=== PATIENT | female | born 1945 | race Caucasian/White ===

== ENCOUNTER → 2022-02-12 15:03 | Outpatient (BNVA) | payer MEDICARE, SELFPAY | PROVIDERS: Visit Provider Family Medicine Adult Medicine | DX: I10 Essential (primary) hypertension (principal); E78.5 Hyperlipidemia, unspecified; Z13.6 Encounter for screening for cardiovascular disorders; Z00.00 Encounter for general adult medical examination without abnormal findings | CPT/HCPCS: 80053; 84443; 85025 ==

== ENCOUNTER 2022-03-27 11:28 | Outpatient (CLI) | payer MEDICARE, SELFPAY ==
--- NOTE | 2022-03-27 11:34 | MM_ITS ---
WS: [id number] BILATERAL SCREENING DIGITAL TOMOSYNTHESIS MAMMOGRAM WITH CAD HISTORY: screening COMPARISON: 12/12/2018 and 10/01/2017 Bilateral CC and MLO views with tomosynthesis and synthetic mammography submitted. Computer aided det ection analyzed. Breast composition: There are scattered areas of fibroglandular density. No suspicious masses, microc alcifications or architectural distortion. Long-term stability lobulated 8 mm nodule in the anterior LEFT breast. MM/[place] [id number] IMPRESSION: BI-RADS: 2-Benign FOLLOW UP: 1 Year Follow-up
== END 2022-03-27 11:29 | disposition home or self-care (01) ==
PROVIDERS: PCP Family Medicine Adult Medicine; Visit Provider Family Medicine Adult Medicine
DX: Z12.31 Encounter for screening mammogram for malignant neoplasm of breast (principal)
CPT/HCPCS: 77063; 77067

== ENCOUNTER → 2022-04-29 07:12 | Outpatient (BNVA) | payer MEDICARE, SELFPAY | PROVIDERS: PCP Family Medicine Adult Medicine; Visit Provider Family Medicine Adult Medicine | DX: I10 Essential (primary) hypertension (principal); E78.5 Hyperlipidemia, unspecified; F10.21 Alcohol dependence, in remission; M46.1 Sacroiliitis, not elsewhere classified; Z00.00 Encounter for general adult medical examination without abnormal findings | CPT/HCPCS: 80053; 80061; 85025 ==

== ENCOUNTER → 2022-10-28 08:37 | Outpatient (BNVA) | payer MEDICARE, SELFPAY | PROVIDERS: PCP Family Medicine Adult Medicine; Visit Provider Family Medicine Adult Medicine | DX: N18.30 Chronic kidney disease, stage 3 unspecified (principal); E87.6 Hypokalemia | CPT/HCPCS: 80053 ==

== ENCOUNTER 2022-11-03 08:18 | Outpatient (CLI) | payer MEDICARE, SELFPAY ==
--- NOTE | 2022-11-03 08:39 | XR_ITS ---
WS: [id number] EXAMINATION: XR chest 2V* [id number] REASON FOR EXAM: chronic cough ORDER DATE: 11/03/2022 8:40 AM FINDINGS: There are perihilar and parenchymal granulomatous calcifications. Cardiomegaly is demonstrated. Ther e is an atherosclerotic aorta containing calcified plaque. There are no pleural effusions. XR/XR chest 2V* [id number] IMPRESSION: CARDIOMEGALY WITH NO ACUTE PULMONARY CHANGE.
== END 2022-11-03 08:19 | disposition home or self-care (01) ==
LOC: RAD 08:22
PROVIDERS: PCP Family Medicine Adult Medicine; Visit Provider Family Medicine Adult Medicine
DX: R05.3 Chronic cough (principal); I10 Essential (primary) hypertension; N18.30 Chronic kidney disease, stage 3 unspecified; I51.7 Cardiomegaly
CPT/HCPCS: 71046

== ENCOUNTER 2022-12-21 16:09 | Emergency (ER) | payer MEDICARE, SELFPAY ==
[2022-12-21 16:20] VITALS: BP 128/83; PULSE 126; RESP 16; TEMP 36.7; O2SAT 96; BMI 26.1
--- NOTE | 2022-12-21 17:12 | ED_ITS ---
HPI - Allergic Reaction General: Chief complaint: Allergic Reaction Stated complaint: allergic reaction Time Seen by Provider: 12/21/22 17:12 History of Present Illness: HPI narrative: 77-year-old female comes in today with rash to the face upper neck arms and legs. Patient was concerned due to significant swelling under the eyes. Patient reports increased swelling upon awakening today which is seem to improve a little bit after being up and around. Patient had worked outside on Wednesday and Wednesday cleaning up her yard. Patient has had a history of poison yane outbreak once before. Patient appears nontoxic. Patient appears in no pain. Patient has a history of hypertension, muscle spasms, high cholesterol, IBS with constipation variety, depression. Associated symptoms: Deny nausea or vomiting Review of Systems General: Reports: 10 or more systems reviewed and unremarkable except in HPI and below ENMT: Denies: throat pain Card: Denies: chest pain Resp: Denies: dyspnea GI: Denies: nausea or vomiting : Denies: flank pain Musc: Denies: neck pain Skin/Breast: Reports: rash and erythema Neuro: Denies: headache(s) PFSH ED PFSH: Medical History (Updated 12/21/22 @ 17:17 by DUC Starkey) Alcohol use disorder, severe, in sustained remission, dependence Chronic GERD Chronic idiopathic constipation CKD (chronic kidney disease) stage 3, GFR 30-59 ml/min Dyslipidemia Hypertension Hypokalemia Methamphetamine use disorder, severe, in sustained remission, dependence age 22 to 46, remission 30 years Neck and shoulder pain Nocturnal cough Post-traumatic stress disorder, chronic Psychiatric care Sacroiliac inflammation 04/29/2022 and 10/28/2022 Rt > left Social History Smoking and tobacco status: never smoked Second hand smoke exposure: Yes Smoking risk assessment/counseling performed?: No Alcohol intake: current Alcohol intake frequency: holidays/special occasions only Alcohol type: beer Desire information about alcohol rehabilitation?: No Counseling given: No Substance/Drug Use: never Desire information about substance/drug rehabilitation?: No Counseling given: No Lives independently: Yes Household members: family Current occupational status: retired and disabled Physical Exam Const: COMMON NORMALS: alert HENMT: FACE & SINUS: other (Erythematous rough rash with facial swelling) NOSE: Normal nares present MOUTH: Normal oral and palatal mucosa present Neck/C-Spine: COMMON NORMALS: full ROM Resp: COMMON NORMALS: normal respiratory effort and clear to auscultation bilaterally AUSCULTATION: clear to auscultation bilaterally Cardio: COMMON NORMALS: regular rate and regular rhythm RATE: regular rate RHYTHM: regular rhythm GI: COMMON NORMALS: non-tender : COMMON NORMALS: Yes no CVA tenderness BLADDER/KIDNEY EXAM: Yes no CVA tenderness Back/Pelvis: COMMON NORMALS: no CVA tenderness Extremity: COMMON NORMALS: full ROM Neuro: SENSORIUM/ORIENTATION: Yes alert Skin: COMMON NORMALS: turgor normal GENERAL SKIN EXAM: turgor normal Course Vital Signs: Vital signs: Vital Signs Temperature 98.0 F 12/21/22 16:20 Pulse Rate 100 12/21/22 17:31 Respiratory Rate 16 12/21/22 17:31 Blood Pressure 128/83 12/21/22 16:20 Pulse Oximetry 99 12/21/22 17:31 Oxygen Delivery Me thod Room Air 12/21/22 16:20 MDM - Allergic Reaction Medical Decision Making 77-year-old female comes in today with rash to the face neck forearms and lower legs. On exam patient has a extensive rash to the face that is rough in texture of swelling surrounding it. Patient also has patches of a similar rash to the forearms and lower legs. Differential diagnosis includes but not limited to angioedema, anaphylaxis, contact dermatitis, allergic reaction. The exam endorses contact dermatitis with a plant along with patient's history. Swelling is secondary to the extensive rash to mainly the face. Discussed with patient recommended treatment with steroid to help with the swelling around the eyes and face. Discussed other treatment with calamine and antihistamine. Discussed the use of Claritin and/or Zyrtec to help with the itching and rash since patient does not tolerate Benadryl. Patient reported understanding and agreed to plan. Discharge Plan Discharge Patient Disposition: Home Clinical Impression: Contact dermatitis Qualifiers: Contact dermatitis type: allergic Contact dermatitis trigger: non-food plants Qualified Code(s): L23.7 - Allergic contact dermatitis due to plants, except food Condition: Stable Prescriptions: New prednisone 20 mg tablet 20 mg PO BID 7 Days Qty: 14 0RF No Action potassium chloride 20 mEq tablet extended release 20 meq PO DAILY Qty: 30 11RF baclofen 10 mg tablet 10 mg PO TID PRN (Reason: muscle pain) Qty: 30 2RF Linzess 145 mcg capsule 145 mcg PO QAM Qty: 30 5RF famotidine [Pepcid AC] 20 mg tablet 20 mg PO DAILY duloxetine [Cymbalta] 30 mg capsule,delayed release(DR/EC) 30 mg PO DAILY Qty: 30 2RF sertraline [Zoloft] 50 mg tablet 50 mg PO DAILY Qty: 30 0RF trazodone 100 mg tablet 300 mg PO .HS PRN (Reason: insomnia) Qty: 90 2RF amlodipine 5 mg tablet 5 mg PO DAILY Qty: 30 5RF atorvastatin 10 mg tablet 10 mg PO DAILY Qty: 30 5RF Discharge Orders: Discharge ED (Routine); Ordered 12/21/22 Ordered By: Yuri Sagastume Referrals: Malcolm Hubbard MD [Primary Care Provider] - Discharge Diet: Usual diet Discharge Activity: Increase activity as tolerated Patient Instructions: Poison Yane (ED), Cold Compress or Soak (ED) Activity Restrictions/Additional Instructions: Use loratadine, Claritin, 1 tablet twice a day to help with itching and rash. Drink plenty of water with medication. Take prednisone 20 mg 1 tablet twice a day for the next 7 days. The rash will have to run its course and takes about 14 days to clear. The prednisone will help with the swelling in the face. Elevate the head of your bed at night to help with swelling of the face and eyes . Follow-up with primary care in 2 to 3 days for recheck. Return to ED for new concerns or worsening symptoms such as shortness of breath, chest pain, or high fever. Coding Level of Care Code ED Food Service Lead for Ravi Sharma
[2022-12-21] MEDS: cetirizine 10 mg Tablet PO (17:20)
[2022-12-21] MEDS: dexamethasone 10 mg/mL INJ IM (17:20)
[2022-12-21 17:31] VITALS: PULSE 100; RESP 16; O2SAT 99
== END 2022-12-21 17:32 | disposition home or self-care (01) ==
PROVIDERS: Emergency Provider Nurse Practitioner Family; PCP Family Medicine Adult Medicine
DX: L23.7 Allergic contact dermatitis due to plants, except food (principal); Z77.22 Contact with and (suspected) exposure to environmental tobacco smoke (acute) (chronic); I12.9 Hypertensive chronic kidney disease with stage 1 through stage 4 chronic kidney disease, or unspecified chronic kidney disease; N18.30 Chronic kidney disease, stage 3 unspecified; E78.5 Hyperlipidemia, unspecified
CPT/HCPCS: 96372; 99284; J1100

== ENCOUNTER 2023-01-17 10:59 | Observation (INO) | payer MEDICARE, SELFPAY ==
[2023-01-17] VITALS (9 sets, daily range): BP systolic 127–163; BP diastolic 64–79; PULSE 51–108; RESP 13–25; TEMP 36.3–36.4; O2SAT 94–98; BMI 27.6
--- NOTE | 2023-01-17 11:10 | ECG_ITS ---
[facility] Test Date: 2023-01-17 Pat Name: Lupe Mckinney Department: Room: Gender: Female Director Regulatory Affairs: : 1945 Requested By: Kwasi Denney Order Number: [id number] Kenia MD: Edil Hollis M.D. Measurements Intervals [place] Rate: 76 P: 61 AR: 161 QRS: 9 QRSD: 83 T: 46 QT: 342 QTc: 386 Interpretive Statements SINUS RHYTHM LOW QRS VOLTAGE IN PRECORDIAL LEADS [QRS DEFLECTION < 1.0 mV IN CHEST LEADS] No previous ECG available for comparison Electronically Signed On 01-17-2023 15:45:15 CDT by Edil Hollis M.D. [id number] f
--- NOTE | 2023-01-17 11:21 | ED_ITS ---
HPI - Chest Pain General: Chief Complaint: Chest Pain Stated Complaint: chest Pain and discomfort, Time Seen by Provider: 01/17/23 11:21 History of Present Illness: Ms. Mckinney is a 77-year-old lady with history of hypertension hyperlipidemia presented to the emergency department for chest pain. Notes onset of symptoms while walking to her car approximately 30 minutes prior to arrival. Substernal on the right with radiation to the jaw and associated shortness of breath. Moderate intensity symptoms. Course has persisted. Denies frequent similar episodes in the past. No other specific changes in health, exacerbating, or alleviating factors identified. Onset (ago): minute(s) Onset: during exertion Pain location: substernal and right chest Pain radiation: jaw/teeth Severity: moderate Quality: aching Relieving factors: nothing Exacerbating factors: nothing Review of Systems General: Reports: 10 or more systems reviewed and unremarkable except in HPI and below PFSH ED PFSH: Medical History (Updated 01/27/23 @ 10:35 by Malcolm Hubbard MD) Alcohol use disorder, severe, in sustained remission, dependence Chest pain Chronic GERD Chronic idiopathic constipation Decreased calculated GFR Dyslipidemia Hypertension Hypokalemia Methamphetamine use disorder, severe, in sustained remission, dependence age 22 to 46, remission 30 years Neck and shoulder pain Post-traumatic stress disorder, chronic Psychiatric care Sacroiliac inflammation 04/29/2022 and 10/28/2022 Rt > left Urticaria Social History Smoking and tobacco status: never smoked Second hand smoke exposure: Yes Smoking risk assessment/counseling performed?: No Alcohol intake: current Alcohol intake frequency: holidays/special occasions only Alcohol type: beer Desire information about alcohol rehabilitation?: No Counseling given: No Substance/Drug Use: never Desire information about substance/drug rehabilitation?: No Counseling given: No Lives independently: Yes Household members: family Current occupational status: retired and disabled Physical Exam Const: COMMON NORMALS: alert GENERAL APPEARANCE: cooperative and well developed HENMT: COMMON NORMALS: normocephalic and atraumatic HEAD & SCALP: normocephalic and atraumatic Eye: COMMON NORMALS: conjunctivae normal CONJUNCTIVA: Yes conjunctivae normal SCLERA: sclerae normal Neck/C-Spine: COMMON NORMALS: supple GENERAL: Yes trachea midline Resp: COMMON NORMALS: normal respiratory effort EFFORT & INSPECTION: Yes able to speak in complete sentences Cardio: COMMON NORMALS: regular rate and regular rhythm RATE: regular rate RHYTHM: regular rhythm GI: COMMON NORMALS: Soft to palpation PALPATION: Yes Soft to palpation and No Tenderness to palpation present (GI) PERCUSSION: normal to percussion Extremity: GENERAL: Yes normal exam except as noted and No edema Neuro: COMMON NORMALS: moves all extremities SENSORIUM/ORIENTATION: Yes alert and No Orientation impaired Psych: COMMON NORMALS: mental status grossly normal and Normal thought process present THOUGHT PROCESS: Normal thought process present Course Vital Signs: Vital signs: Vital Signs Temperature 98.6 F 01/18/23 11:08 Pulse Rate 72 01/18/23 11:08 Respiratory Rate 16 01/18/23 11:08 Blood Pressure 145/73 01/18/23 11:08 Pulse Oximetry 97 01/18/23 11:08 Oxygen Delivery Me thod Room Air 01/18/23 11:08 MDM - Chest Pain Medical Decision Making 77-year-old lady presenting with chest pain. Chest pain is not reproducible with palpation on exam. EKG demonstrates sinus rhythm with normal axis and intervals, nonspecific ST segment abnormalities, no STEMI. Labs with essentially unremarkable hematologic panel. Metabolic panel with normal electrolytes, minimal elevation in creatinine. Negative range 2-hour delta troponin. Chest x-ray with no lobar consolidation or pneumothorax. During ED course patient treated with aspirin and morphine. The patient is not low risk by heart score. I discussed risk stratification and estimation of major adverse cardiac event risks. We will proceed with in hospital cardiac testing. The results of ED evaluation were discussed with the patient including plan for admission due to requirement for level of care not available if discharged to prevent significant worsening/deterioration. Patient agreeable with plan. Discussed with hospitalist service who was agreeable to admit patient. Medical Records I reviewed the patient's medical records. Lab Data I reviewed the patient's lab results. 01/18/23 04:37 01/18/23 04:16 Radiology Impressions Chest X-Ray 01/17/23 11:22 IMPRESSION: No acute findings. Chest CTA 01/18/23 11:34 IMPRESSION: 1. No pulmonary embolism. 2. Dependent changes and subsegmental areas of atelectasis in the lingula and LEFT lower lobe. 3. Mild LEFT heart enlargement. 4. Small hiatal hernia. 5. Mild esophageal wall thickening. Laboratory Results WBC 5.9 10^3/uL (4.0-10.0) 01/17/23 11: RBC 4.02 10^6/uL (4.1-5.3) L 01/17/23 11:28 Hgb 11.5 g/dL (11.5-15.3) 01/17/23 11:28 Hct 36.1 % (37.0-47.0) L 01/17/23 11: MCV 89.8 fl (81-99) 01/17/23 11:28 MCH 28.6 pg (28.0-34.0) 01/17/23 11: MCHC 31.9 g/dL (30.0-36.0) 01/17/23 11: RDW 14.4 % (12.1-15.1) 01/17/23 11: Plt Count 265 10^3/cmm (130-400) 01/17/23 11: MPV 8.9 fL (7.4-10.4) 01/17/23 11:28 Neut % (Auto) 63.4 % 01/17/23 11:28 Lymph % (Auto) 25.6 % 01/17/23 11:28 Hubbard % (Auto) 5.8 % 01/17/23 11:28 Eos % (Auto) 4.1 % 01/17/23 11:28 Baso % (Auto) 0.8 % 01/17/23 11:28 Neut # (Auto) 3.73 10^3/uL (1.8-7.7) 01/17/23 11:28 Lymph # (Auto) 1.5 10^3/uL (0.8-4.8) 01/17/23 11:28 Hubbard # (Auto) 0.3 10^3/uL (0.2-0.9) 01/17/23 11:28 Eos # (Auto) 0.2 10^3/uL (0.0-0.8) 01/17/23 11:28 Baso # (Auto) 0.1 10^3/uL (0.0-0.1) 01/17/23 11:28 Nucleated RBC % (auto) 0 % 01/17/23 11:28 Nucleated RBCs # 0.0 /100WBC 01/17/23 11:28 Sodium 139 mmol/L (136-145) 01/17/23 11:28 Potassium 4.2 mmol/L (3.5-5.1) 01/17/23 11:28 Chloride 103 mmol/L (98-107) 01/17/23 11:28 Carbon Dioxide 23 mmol/L (22-29) 01/17/23 11:28 Anion Gap 17.2 (5-19) 01/17/23 11:28 BUN 17 mg/dL (8-23) 01/17/23 11:28 Creatinine 1.2 mg/dL (0.5-0.9) H 01/17/23 11:28 GFR Calculation Not Reportable 01/17/23 11:28 Glucose 118 mg/dL (65-115) H 01/17/23 11:28 Calculated Osmolality 291 mOsm/kg (285-295) 01/17/23 11:28 Calcium 9.5 mg/dL (8.5-10.5) 01/17/23 11:28 Total Bilirubin 1.0 mg/dL (0.15-1.2) 01/17/23 11:28 AST 25 U/L (0-32) 01/17/23 11:28 ALT 8 U/L (0-33) 01/17/23 11:28 Alkaline Phosphatase 70 U/L (35-105) 01/17/23 11:28 Troponin T Baseline 11 ng/L (0-10) H 01/17/23 11:28 Troponin T 120 Minute 11.06 ng/L (0-10) H 01/17/23 13:15 Delta Troponin T 0.06 ABS# (0-10) 01/17/23 13:15 NT-Pro-B Natriuret Pep 125 pg/mL (0-450) 01/17/23 11:28 Total Protein 7.0 g/dL (6.6-8.7) 01/17/23 11:28 Albumin 4.7 g/dL (3.5-5.2) 01/17/23 11:28 Globulin 2.3 g/dL (1.3-4.6) 01/17/23 11:28 Lipase 22 U/L (13-60) 01/17/23 11:28 Discharge Plan Discharge Patient Disposition: Placed in Observation Admit Provider: Ed Hilliard Clinical Impression: Chest pain Discharge Diet: Cardiac Discharge Activity: Increase activity as tolerated Coding Level of Care Code ED Jewelry Bench Molder for Ravi Sharma
--- NOTE | 2023-01-17 11:22 | XRR_ITS ---
PROCEDURE INFORMATION: Exam: XR Chest Exam date and time: 01/17/2023 11:34 AM Age: 77 years old Clinical indication: Pain; Chest pressure; Additional info: Cp TECHNIQUE: Imaging protocol: Radiologic exam of the chest. Views: 1 view. COMPARISON: CR XR chest 2V* [id number] 11/03/2022 8:41 AM FINDINGS: Lungs: Unremarkable. No consolidation. Pleural spaces: Unremarkable. No pleural effusion. No pneumothorax. Heart/Mediastinum: Unremarkable. No cardiomegaly. Bones/joints: Unremarkable. XR/XR chest 1V portable [id number] IMPRESSION: No acute findings.
[2023-01-17] MEDS: aspirin 81 mg Chew Tablet 324 MG PO (11:33)
[2023-01-17] MEDS: morphine 4 mg/mL SDV 1 mL IVP (11:34)
[2023-01-17 11:36] LABS: Basophils # 0.1 10^3/uL (0.0-0.1); Basophils % 0.8 %; Eosinophils # 0.2 10^3/uL (0.0-0.8); Eosinophils % 4.1 %; Hematocrit 36.1 % (37.0-47.0); Hemoglobin 11.5 g/dL (11.5-15.3); Lymphocytes # 1.5 10^3/uL (0.8-4.8); Lymphocytes % 25.6 %; Mean Corpuscular HGB Conc 31.9 g/dL (30.0-36.0); Mean Corpuscular Hemoglobin 28.6 pg (28.0-34.0); Mean Corpuscular Volume 89.8 fl (81-99); Mean Platelet Volume 8.9 fL (7.4-10.4); Monocytes # 0.3 10^3/uL (0.2-0.9); Monocytes % 5.8 %; Neutrophils # 3.73 10^3/uL (1.8-7.7); Neutrophils % 63.4 %; Nucleated Red Blood Cells % 0 %; Platelet Count 265 10^3/cmm (130-400); Red Blood Count 4.02 10^6/uL (4.1-5.3); Red Cell Distribution Width 14.4 % (12.1-15.1); White Blood Count 5.9 10^3/uL (4.0-10.0)
[2023-01-17 12:00] LABS: Troponin(5th) Baseline 11 ng/L (0-10)
[2023-01-17 12:05] LABS: Alanine Aminotransferase 8 U/L (0-33); Albumin Level 4.7 g/dL (3.5-5.2); Alkaline Phosphatase 70 U/L (35-105); Anion Gap 17.2 (5-19); Aspartate Amino Transferase 25 U/L (0-32); Blood Urea Nitrogen 17 mg/dL (8-23); Calcium 9.5 mg/dL (8.5-10.5); Carbon Dioxide 23 mmol/L (22-29); Chloride 103 mmol/L (98-107); Globulin 2.3 g/dL (1.3-4.6); Glucose 118 mg/dL (65-115); Lipase 22 U/L (13-60); NT Pro B Type Natriuretic Pept 125 pg/mL (0-450); Osmolality Calculated 291 mOsm/kg (285-295); Potassium 4.2 mmol/L (3.5-5.1); Sodium 139 mmol/L (136-145)
--- NOTE | 2023-01-17 13:30 | ECG_ITS ---
[facility] Test Date: 2023-01-17 Pat Name: Lupe Mckinney Department: Room: Gender: Female Digital Project Coordinator: : 1945 Requested By: Kwasi Denney Order Number: [id number] Kenia MD: Edil Hollis M.D. Measurements Intervals [place] Rate: 57 P: 28 TN: 174 QRS: 13 QRSD: 94 T: 36 QT: 402 QTc: 392 Interpretive Statements SINUS BRADYCARDIA LOW QRS VOLTAGE IN PRECORDIAL LEADS [QRS DEFLECTION < 1.0 mV IN CHEST LEADS] Compared to ECG 01/17/2023 11:10:31 Sinus rhythm no longer present Electronically Signed On 01-17-2023 15:47:08 CDT by Edil Hollis M.D. [id number]
[2023-01-17 13:42] LABS: Troponin 5 2HR 11.06 ng/L (0-10)
[2023-01-17 13:44] LABS: Troponin 5 2HR Delta 0.06 ABS# (0-10)
--- NOTE | 2023-01-17 15:23 | PM.HP ---
Providers/Chief Complaint Admitting Physician: Ed Hilliard MD Primary Care Provider: Malcolm Hubbard MD Chief Complaint: chest Pain and discomfort, History of Present Illness Lupe Mckinney is a 77 year old female with PMH of HTN DLD, CKD stage III, anxiety disorder, came in today with c/o right-sided substernal chest pain, sharp 6 out of 10 in severity nonradiating, associated with sob, lasted for quite some time, this happened when she was at the car wash, also had a similar episode of chest pain 1 week back, which spontaneously resolved at that time, she deny any fever, cough, palpitation, diaphoresis, nausea,vomiting,abdominal pain Pertinent labs and imaging studies includes: Xray chest : No acute findings ,EKG : SR with no acute ST-T Waves changes Pertinent Labs : WBC : 5.9 H&H: PLT : 265 Na : 139 K: 4.2 BUN/SCR : 17/1,2, Lipase: 22 Troponin Trend : 11-11 6 h pending Pro BNP: 125 Review of Systems General: Reports: 10 or more systems reviewed and unremarkable except in HPI and below Const: Denies: fever(s), chills, body aches, change in appetite or diaphoresis Card: Denies: palpitations, edema, swelling of feet/ankles, dyspnea on exertion, orthopnea or leg pain with exertion Resp: Denies: dyspnea, productive cough, wheezing or pain on inspiration GI: Denies: abdominal pain, nausea, vomiting, diarrhea or constipation : Denies: flank pain Musc: Denies: back pain, extremity pain or extremity swelling Neuro: Denies: headache(s), difficulty walking or confusion Medications/Allergies Home Medications Medication Instructions Recorded Confirmed Last Taken Type permethrin 5 % topical cream 1 applic topical Q14D 2 doses #60 01/05/23 01/17/23 01/05/23 Rx grams due to use 01/19/23 amlodipine 5 mg tablet 5 mg PO QAM blood pressure 01/17/23 01/17/23 01/17/23 08:30 History atorvastatin 10 mg tablet 10 mg PO QAM cholesterol 01/17/23 01/17/23 01/17/23 08:30 History duloxetine 60 mg capsule,delayed 60 mg PO QAM 01/17/23 01/17/23 01/17/23 08:30 History release (Cymbalta) potassium chloride 20 mEq 20 meq PO QAM Low potassium 01/17/23 01/17/23 01/17/23 08:30 History tablet,extended release trazodone 100 mg tablet 200 mg PO BEDTIME 01/17/23 01/17/23 01/16/23 History Allergies Allergy/AdvReac Type Severity Reaction Status Date / Time Sulfa (Sulfonamide Allergy Severe Anaphylaxis Verified 01/17/23 11:35 Antibiotics) diphenhydramine AdvReac Mild ADR-Nausea Verified 01/17/23 11:35 [From Benadryl] pineapple AdvReac Mild Unknown Verified 01/17/23 11:35 PFSH Acute PFSH: Medical History Alcohol use disorder, severe, in sustained remission, dependence Chronic GERD Chronic idiopathic constipation CKD (chronic kidney disease) stage 3, GFR 30-59 ml/min Dyslipidemia Hypertension Hypokalemia Methamphetamine use disorder, severe, in sustained remission, dependence age 22 to 46, remission 30 years Neck and shoulder pain Nocturnal cough Post-traumatic stress disorder, chronic Psychiatric care Sacroiliac inflammation 04/29/2022 and 10/28/2022 Rt > left Social History Smoking and tobacco status: never smoked Second hand smoke exposure: Yes Smoking risk assessment/counseling performed?: No Alcohol intake: current Alcohol intake frequency: holidays/special occasions only Alcohol type: beer Desire information about alcohol rehabilitation?: No Counseling given: No Substance/Drug Use: never Desire information about substance/drug rehabilitation?: No Counseling given: No Lives independently: Yes Household members: family Current occupational status: retired and disabled Vitals/I&O/Wt Last Vital Signs Pulse 54 L 01/17/23 14:22 Resp 17 01/17/23 14:22 BP 141/78 01/17/23 14:22 Pulse Ox 98 01/17/23 14:22 O2 Del Method Room Air 01/17/23 11:03 Weight last 48 hrs Weight 87.543 kg Physical Exam Const: COMMON NORMALS: patient oriented x3 HENMT: COMMON NORMALS: normocephalic and atraumatic HEAD & SCALP: normocephalic and atraumatic Resp: COMMON NORMALS: clear to auscultation bilaterally AUSCULTATION: clear to auscultation bilaterally Cardio: COMMON NORMALS: regular rate, regular rhythm, S1 normal heart sound present, S2 normal heart sound present, No gallops present (Cardio), No murmurs present (Cardio), No rub (Cardio) and Peripheral pulses 2+ throughout RATE: regular rate RHYTHM: regular rhythm HEART SOUNDS: S1 normal heart sound present and S2 normal heart sound present PERIPHERAL PULSES: Peripheral pulses 2+ throughout GI: COMMON NORMALS: Normal to inspection, nondistended, normoactive bowel sounds present, Soft to palpation, non-tender, No hepatosplenomegaly present and no masses AUSCULTATION: Yes normoactive bowel sounds PALPATION: Yes Soft to palpation and Yes No hepatosplenomegaly present RECTAL EXAM: deferred Extremity: COMMON NORMALS: no clubbing, cyanosis or edema and no pedal edema Neuro: COMMON NORMALS: patient oriented x3 Data 01/17/23 11:28 01/17/23 11:28 A&P Assessment and plan (1) Chest pain: (2) CKD (chronic kidney disease) stage 3, GFR 30-59 ml/min: (3) Dyslipidemia: (4) Hypertension: Plan 77 year old female with PMH of HTN DLD, CKD stage III, anxiety disorder, came in today with c/o right-sided sub sternal chest pain, sharp 6 out of 10 in severity non radiating, associated with sob, lasted for quite some time, this happened when she was at the car wash, also had a similar episode of chest pain 1 week back, which spontaneously resolved at that time, she deny any fever, cough, palpitation, diaphoresis, nausea,vomiting,abdominal pain. Assessment : Chest Pain : Follow 2D Echo Lipid Panel TSH Hba1c Continue aspirin, statin, s/l nitro as needed Nuclear Stress test in am HTN : Continue Amlodipine 5 mg po daily Goal B/P <130/70 Sinus Bradycardia : Continue telemetry monitoring for now Code Status :Full code DVT PPX: On lovenox Attestations Medical Necessity Statement*: Patient needs to be in hospital for the management of chest pain. Coding Level of Care Code Acute Code for [facility] Diagnoses Chest pain R07.9 CKD (chronic kidney disease) stage 3, GFR 30-59 ml/min N18.30 Dyslipidemia E78.5 Hypertension I10
--- NOTE | 2023-01-17 16:00 | USCV_ITS ---
Lupe Mckinney Age: 77 Gender: F : 1945 Exam Date: 01/17/2023 18:56 Ordering Phys: Ed Hilliard MD Technologist: AUBREY Exam Location: [facility] [place] Indication: cp BP: / HR: 52 Rhythm: Sinus Technical Quality: Adequate MEASUREMENTS (Male / Female) Normal Values 2D ECHO LV Diastolic Diameter PLAX 5.9 cm 4.2 - 5.9 / 3.9 - 5.3 cm LV Systolic Diameter PLAX 4.5 cm IVS Diastolic Thickness 0.6 cm 0.6 - 1.0 / 0.6 - 0.9 cm IVS Systolic Thickness 0.8 cm LVPW Diastolic Thickness 0.6 cm 0.6 - 1.0 / 0.6 - 0.9 cm LVPW Systolic Thickness 0.8 cm LVOT Diameter 2.0 cm LV Ejection Fraction 2D Teich 44.8 % LV Ejection Fraction MOD 2C 57.8 % LV Ejection Fraction 2C AL 57.9 % LA Diameter 3.4 cm IVC Diameter 1.5 cm M-MODE Aortic Annulus Diameter 2.6 cm LA Ao Ratio MM 1.5 MV E Point Septal Separation 0.5 cm DOPPLER AV Peak Velocity 140.0 cm/s LVOT Peak Velocity 98.0 cm/s AV Area Cont Eq vti 2.3 cm squared AV Area Cont Eq pk 2.3 cm squared MV Area PHT 4.1 cm squared Mitral E to A Ratio 1.1 MV E' Velocity 42.5 cm/s Mitral E to MV E' Ratio 9.1 Mitral E to LV E' Lateral Ratio 8.5 Mitral E to LV E' Septal Ratio 9.8 TR Peak Velocity 259.0 cm/s TR Peak Gradient 26.8 mmHg Right Atrial Pressure 6.0 mmHg Pulmonary Artery Systolic Pressu 32.8 mmHg PV Peak Velocity 84.0 cm/s FINDINGS Left Ventricle Left ventricle is normal in size. LV systolic function is normal with EF 55 to 60%. No regional wall motion abnormalities are seen. Right Ventricle Normal in size and function Right Atrium Normal in size Left Atrium Dilated Mitral Valve Structurally normal mitral valve. Mild mitral regurgitation Aortic Valve Aortic valve is thickened. No significant stenosis or regurgitation. Tricuspid Valve Mild tricuspid regurgitation. RVSP is 35-40mmHg, Mild pulmonary hypertension Pulmonic Valve Not well visualized Pericardium Normal Aorta Normal in size IVC Appears to be normal CONCLUSIONS LV systolic function is normal with EF of 55-60% Left atrial dilation Mild mitral regurgitation Mild tricuspid regurgitation Mild pulmonary hypertension No comparison studies are available. Edil Hollis MD (Electronically Signed) Final Date: 18 January 2023 09:23 S
[2023-01-17] MEDS: enoxaparin 40 mg/0.4 mL Syringe SUBCUT (17:29)
[2023-01-17 18:02] LABS: Troponin 5 6HR 10.93 ng/L (0-10)
[2023-01-17 18:19] LABS: Troponin 5 6HR Delta -0.07 ng/L (0-12)
[2023-01-17] MEDS: trazodone 100 mg Tablet 200 MG PO (21:01)
[2023-01-18] VITALS: BP 126/72; PULSE 91; RESP 18; TEMP 36.1; O2SAT 95
--- NOTE | 2023-01-18 | ECG_ITS ---
[facility] Test Date: 2023-01-18 Pat Name: Lupe Mckinney Department: Room: 275 Gender: Female Manager Corporate Responsibility: Roslyn Núñez : 1945 Requested By: Ed Hilliard Order Number: [id number] Kenia MD: Alba Donahue M.D. Interpretive Statements NAME OF STUDY: LEXISCAN SESTAMIBI STRESS TEST INDICATION: Chest Pain; Shortness of Breath PROCEDURE: At the baseline, the blood pressure was 137/52 mmHg with a heart rate of 69 bpm. The electrocardiogram showed sinus rhythm, normal axis with specific T wave changes. The Lexiscan was infused over a period of 20 seconds. A total of 0.4 milligrams of Lexiscan was infused. The stress phase was continued for a total of 5 minutes. Heart rate at the end of the stress phase was 80 bpm with a blood pressure 102/62 mmHg. The EKG at the peak infusion revealed no significant ST-T wave changes. Sestamibi was injected 20 seconds after the Lexiscan infusion. Blood pressure at the end of the recovery phase was 114/65 mmHg with a heart rate of 76 beats per minute. CONCLUSION: 1. No significant EKG changes with the LexiScan infusion. 2. No LexiScan induced chest pain or cardiac arrhythmia. 3. Normal blood pressure and heart rate response. 4. Sestamibi/sestamibi perfusion scan pending; see separate report. Electronically Signed On 01-18-2023 16:24:28 CDT by Alba Donahue M.D. [id number]
--- NOTE | 2023-01-18 02:44 | PC.NURSE ---
Patient's heart rate jumped up into the 140s Afib on telemetry. This nurse went to check on patient and patient was in the bathroom. Patient stated she was okay and was not having any pain. Patient's heart rate returned to Afib, normal rate once patient settled back into bed.
[2023-01-18 04:25] VITALS: BP 95/56; PULSE 79; RESP 16; TEMP 36.4; O2SAT 97
[2023-01-18 05:03] LABS: Basophils % 0.6 %; Eosinophils # 0.2 10^3/uL (0.0-0.8); Eosinophils % 3.6 %; Hematocrit 37.9 % (37.0-47.0); Lymphocytes # 1.6 10^3/uL (0.8-4.8); Lymphocytes % 24.4 %; Mean Corpuscular HGB Conc 31.7 g/dL (30.0-36.0); Mean Corpuscular Hemoglobin 29.2 pg (28.0-34.0); Mean Corpuscular Volume 92.2 fl (81-99); Mean Platelet Volume 8.8 fL (7.4-10.4); Monocytes # 0.4 10^3/uL (0.2-0.9); Monocytes % 6.8 %; Neutrophils # 4.14 10^3/uL (1.8-7.7); Neutrophils % 64.3 %; Nucleated Red Blood Cells % 0 %; Platelet Count 251 10^3/cmm (130-400); Red Blood Count 4.11 10^6/uL (4.1-5.3); Red Cell Distribution Width 14.3 % (12.1-15.1); White Blood Count 6.4 10^3/uL (4.0-10.0)
[2023-01-18 05:35] LABS: Anion Gap 14.5 (5-19); Blood Urea Nitrogen 19 mg/dL (8-23); Calcium 9.6 mg/dL (8.5-10.5); Carbon Dioxide 27 mmol/L (22-29); Chloride 104 mmol/L (98-107); Glucose 96 mg/dL (65-115); Osmolality Calculated 294 mOsm/kg (285-295); Potassium 4.5 mmol/L (3.5-5.1); Sodium 141 mmol/L (136-145); Thyroid Stimulating Hormone 4.78 uIU/mL (0.27-4.20)
[2023-01-18 05:38] VITALS: PULSE 70
[2023-01-18] MEDS: duloxetine 60 mg Capsule PO (05:43)
[2023-01-18] MEDS: atorvastatin 40 mg Tablet 20 MG PO (05:43)
[2023-01-18] MEDS: amlodipine 5 mg Tablet PO (05:45)
[2023-01-18 05:46] VITALS: BP 129/78
--- NOTE | 2023-01-18 06:15 | NMCV_ITS ---
NM william perf SPECT r/s* [id number] Lupe Mckinney Age: 77 Gender: F : 1945 Exam Date: 01/18/2023 06:15 Ordering Phys: Ed Hilliard MD Technologist: MAXIMILIAN Peterson Exam Location: [facility] Indications: CHEST PAIN STRESS TEST Please see separate stress test report in [facility] for full findings IMAGE PROTOCOL Rest/Stress 1 Lexiscan Day Radiopharmaceutical Dose (mCi) Administration Site Administered by Rest: Tc-99m 10.8 IV MAXIMILIAN Bobo Sestamibi Stress:Tc-99m 32.9 IV MAXIMILIAN Bobo Sestamibi Rest: 18-Jan-2023 60 Discovery 630 Stress: 18-Jan-2023 30 Discovery 630 0.4mg Lexiscan. Images obtained in supine and prone position. SPECT RESULTS Technical Quality: Excellent Raw Data Analysis: Normal Image Corrections: No attenuation or motion correction applied Summed Stress Score: 1 Summed Rest Score: 8 Summed Difference Score: 0 PERFUSION FINDINGS There is reduced radiotracer uptake in the apical, apical inferior cruz on rest images that improves with stress imaging. This is consistent with attenuation artifact in these territories. No evidence of ischemia seen FUNCTIONAL RESULTS (calculated via Gated SPECT) Stress Image LV EF (%): 73 Stress EDV (mL):71 TID: 0.82 Stress ESV (mL):19 FUNCTIONAL FINDINGS: There is normal left ventricular systolic function. IMPRESSIONS 1. Attenuation artifact noted in the apical and apical inferior wall. No evidence of ischemia 2. LV systolic function is normal Edil Hollis MD (Electronically Signed) Final Date: 18 January 2023 08:45 S
[2023-01-18 07:06] LABS: Estmated Average Glucose 105; Hemoglobin A1C 5.3 % (4.0-6.0)
[2023-01-18] MEDS: regadenoson 0.4 Mg/5 ml Syringe IVP (07:15)
[2023-01-18 07:38] LABS: Chol HDL Ratio 3.03 mg/dL (0.0-4.40); Cholesterol 182 mg/dL (0-200); HDL Cholesterol 60 mg/dL (60-100); LDL Cholesterol Calculated 78 mg/dL (50-129); Triglycerides 218 mg/dL (0-150)
[2023-01-18 07:46] VITALS: BP 114/65; PULSE 72
[2023-01-18] MEDS: aspirin 81 mg EC Tablet PO (08:57)
[2023-01-18 10:45] LABS: D Dimer 1.21 ug/mIFEU (0-0.59)
[2023-01-18 11:08] VITALS: BP 145/73; PULSE 72; RESP 16; TEMP 37; O2SAT 97
--- NOTE | 2023-01-18 11:34 | CT_ITS ---
WS: [id number] CT CHEST ANGIOGRAPHY WITH REFORMATS HISTORY: cp TECHNIQUE: Contiguous axial images are obtained through the chest during arterial injection of intrav enous contrast. Images are reconstructed to evaluate the pulmonary arteries. MIP imaging also reviewe d. All CT scans at [facility] use at least one of these dose optimization techniques: automat ed exposure control; mA and/or kV adjustment per patient size (includes targeted exams where dose is matched to clinical indication); or iterative reconstruction. CONTRAST: Omnipaque 350; 100 mL IV. DLP: 406.28 mGy.cm COMPARISON: None available. Adequate opacification of the pulmonary arteries. No proximal or central filling defect. Beyond the s egmental branches the opacification is limited. No enlargement of the pulmonary artery. No RIGHT hear t strain. Mild atherosclerosis aorta. No aortic dilatation or aneurysm. Mild LEFT heart enlargement. No pericardial or pleural effusions. Mild atelectasis and groundglass attenuation towards the lingula. The additional mild dependent lao es with atelectasis at the LEFT lung base. No pneumonia or mass. No mediastinal or hilar adenopathy. Mild esophageal wall thickening. Small hiatal hernia. Negative gallbladder. No adrenal mass. Pancreas is negative. Thoracic scoliosis. CT/CT angio chest PE protcl [id number] IMPRESSION: 1. No pulmonary embolism. 2. Dependent changes and subsegmental areas of atelectasis in the lingula and LEFT lower lobe. 3. Mild LEFT heart enlargement. 4. Small hiatal hernia. 5. Mild esophageal wall thickening.
--- NOTE | 2023-01-18 11:36 | P.DS_ITS ---
Discharge Providers Date of Admission: 01/17/23 15:12 Date of Discharge: January 18, 2023 Attending Provider at Admission: Ed Hilliard MD Attending Provider at Discharge: Jean Peña MD Primary Care Provider: Malcolm Hubbard MD Diagnoses at Discharge Discharge Diagnosis (1) Chest pain: Status: Acute (2) CKD (chronic kidney disease) stage 3, GFR 30-59 ml/min: Status: Acute (3) Dyslipidemia: Status: Acute (4) Hypertension: Status: Acute Reason for Visit Reason for Visit: chest Pain and discomfort, Hospital Course Hospital Course 77-year female who was admitted for management evaluation of chest pain, stress test was requested which was unremarkable, patient made hemodynamically stable, hemoglobin A1c 5.3, troponin 11, 10 without significant delta, triglyceride 218, D-dimer was requested before discharge which came back 1.2 requested CTA chest to rule out PE before discharge. Patient is doing well on room air, bradycardia improved as well. I will discontinue potassium supplements potassium is 4.5 for hypertension we will add lisinopril, Physical Exam Narrative: Awake and alert Euvolemic Abdomen soft GCS 15 Uremic bipolar Nonfocal neuro exam S1, S2 Discharge Data Studies Completed and Pending Completed Studies During Hospitalization Category Date Time Status Cardiac Stress Test MIBI [Sestamibi Stress Test Request Exams 01/18/23 06:51 Draft ] Routine XR chest 1V portable [id number] Stat Exams 01/17/23 11:22 Completed NM william perf SPECT r/s* [id number] Routine Nuc Med 01/18/23 06:15 Completed CV. echo complete* [id number] Routine Ultrasound 01/17/23 16:00 Completed Pending at discharge Category Date Time Status CTA PE [CT angio chest PE protcl [id number]] Stat Cat Scan 01/18/23 11:34 Ordered Cardiac Stress Test MIBI [Sestamibi Stress Test Request Exams 01/17/23 15:21 Stop Req ] Routine Basic Metabolic Panel AM LABS Lab 01/19/23 04:00 Ordered Basic Metabolic Panel AM LABS Lab 01/20/23 04:00 Ordered Complete Blood Count w/Auto AM LABS Lab 01/19/23 04:00 Ordered Complete Blood Count w/Auto AM LABS Lab 01/20/23 04:00 Ordered Radiology Impressions Chest X-Ray 01/17/23 11:22 IMPRESSION: No acute findings. Laboratory Results WBC 6.4 10^3/uL (4.0-10.0) 01/18/23 04:37 RBC 4.11 10^6/uL (4.1-5.3) 01/18/23 04:37 Hgb 12.0 g/dL (11.5-15.3) 01/18/23 04:37 Hct 37.9 % (37.0-47.0) 01/18/23 04:37 MCV 92.2 fl (81-99) 01/18/23 04:37 MCH 29.2 pg (28.0-34.0) 01/18/23 04:37 MCHC 31.7 g/dL (30.0-36.0) 01/18/23 04:37 RDW 14.3 % (12.1-15.1) 01/18/23 04:37 Plt Count 251 10^3/cmm (130-400) 01/18/23 04:37 MPV 8.8 fL (7.4-10.4) 01/18/23 04:37 Neut % (Auto) 64.3 % 01/18/23 04:37 Lymph % (Auto) 24.4 % 01/18/23 04:37 [place] % (Auto) 6.8 % 01/18/23 04:37 Eos % (Auto) 3.6 % 01/18/23 04:37 Baso % (Auto) 0.6 % 01/18/23 04:37 Neut # (Auto) 4.14 10^3/uL (1.8-7.7) 01/18/23 04:37 Lymph # (Auto) 1.6 10^3/uL (0.8-4.8) 01/18/23 04:37 [place] # (Auto) 0.4 10^3/uL (0.2-0.9) 01/18/23 04:37 Eos # (Auto) 0.2 10^3/uL (0.0-0.8) 01/18/23 04:37 Baso # (Auto) 0.0 10^3/uL (0.0-0.1) 01/18/23 04:37 Nucleated RBC % (auto) 0 % 01/18/23 04:37 Nucleated RBCs # 0.0 /100WBC 01/18/23 04:37 D-Dimer 1.21 ug/mIFEU (0-0.59) H 01/18/23 09:44 Sodium 141 mmol/L (136-145) 01/18/23 04:16 Potassium 4.5 mmol/L (3.5-5.1) 01/18/23 04:16 Chloride 104 mmol/L (98-107) 01/18/23 04:16 Carbon Dioxide 27 mmol/L (22-29) 01/18/23 04:16 Anion Gap 14.5 (5-19) 01/18/23 04:16 BUN 19 mg/dL (8-23) 01/18/23 04:16 Creatinine 0.8 mg/dL (0.5-0.9) 01/18/23 04:16 GFR Calculation Not Reportable 01/18/23 04:16 Glucose 96 mg/dL (65-115) 01/18/23 04:16 Estimat Average Glucose 105 01/18/23 04:37 Hemoglobin A1c 5.3 % (4.0-6.0) 01/18/23 04:37 Calculated Osmolality 294 mOsm/kg (285-295) 01/18/23 04:16 Calcium 9.6 mg/dL (8.5-10.5) 01/18/23 04:16 Magnesium 2.0 mg/dL (1.7-2.3) 01/18/23 04:16 Total Bilirubin 1.0 mg/dL (0.15-1.2) 01/17/23 11:28 AST 25 U/L (0-32) 01/17/23 11:28 ALT 8 U/L (0-33) 01/17/23 11:28 Alkaline Phosphatase 70 U/L (35-105) 01/17/23 11:28 Troponin T Baseline 11 ng/L (0-10) H 01/17/23 11:28 Troponin T 120 Minute 11.06 ng/L (0-10) H 01/17/23 13:15 Delta Troponin T 0.06 ABS# (0-10) 01/17/23 13:15 Troponin T Hi Sens 6Hr 10.93 ng/L (0-10) H 01/17/23 17:25 Troponin T Hi Sens 6Hr Delta -0.07 ng/L (0-12) L 01/17/23 17:25 NT-Pro-B Natriuret Pep 125 pg/mL (0-450) 01/17/23 11:28 Total Protein 7.0 g/dL (6.6-8.7) 01/17/23 11:28 Albumin 4.7 g/dL (3.5-5.2) 01/17/23 11:28 Globulin 2.3 g/dL (1.3-4.6) 01/17/23 11:28 Triglycerides 218 mg/dL (0-150) H 01/18/23 04:37 Cholesterol 182 mg/dL (0-200) 01/18/23 04:37 LDL Cholesterol, Calc 78 mg/dL (50-129) 01/18/23 04:37 HDL Cholesterol 60 mg/dL (60-100) 01/18/23 04:37 LDL/HDL Ratio 1.30 RATIO (0.00-3.22) 01/18/23 04:37 Cholesterol/HDL Ratio 3.03 mg/dL (0.0-4.40) 01/18/23 04:37 Lipase 22 U/L (13-60) 01/17/23 11:28 TSH 4.78 uIU/mL (0.27-4.20) H 01/18/23 04:16 Vitals Last Vital Signs Temp 98.6 F 01/18/23 11:08 Pulse 72 01/18/23 11:08 Resp 16 01/18/23 11:08 BP 145/73 01/18/23 11:08 Pulse Ox 97 01/18/23 11:08 O2 Del Method Room Air 01/18/23 11:08 Discharge Plan Discharge Patient Disposition: Home Condition: Stable Prescriptions: New nitroglycerin 0.4 mg tablet, sublingual 0.4 mg sublingual Q5M Qty: 7 0RF Rx Instructions: do not exceed 3 doses per episode lisinopril 10 mg tablet 10 mg PO DAILY Qty: 90 1RF Continued permethrin 5 % cream 1 applic topical Q14D Qty: 60 0RF Rx Instructions: apply second treatment 14 days after first treatment if live lice remain atorvastatin 10 mg tablet 10 mg PO QAM amlodipine 5 mg tablet 5 mg PO QAM trazodone 100 mg tablet 200 mg PO BEDTIME Cymbalta 60 mg capsule,delayed release(DR/EC) 60 mg PO QAM Discontinued potassium chloride 20 mEq tablet extended release 20 meq PO QAM Discharge Orders: Discharge Order (Routine); Ordered 01/18/23 Ordered By: Jean Peña Referrals: Malcolm Hubbard MD [Primary Care Provider] - 7-10 days Discharge Diet: Cardiac Discharge Activity: Increase activity as tolerated Patient Instructions: Opioid Safety Activity Restrictions/Additional Instructions: Your blood pressure has been around 140s I have added lisinopril 10 mg daily for your blood pressure, please do not take potassium potassium is normal 4.5 Discharge Attestations Time Spent in Discharge Care*: greater than 30 min Quality Metrics Clinical Quality Measures [ No reported AMI, CVA or VTE this stay] Coding Level of Care Code Acute Code for Chg Fwd Diagnoses Chest pain R07.9 CKD (chronic kidney disease) stage 3, GFR 30-59 ml/min N18.30 Dyslipidemia E78.5 Hypertension I10
--- NOTE | 2023-01-18 13:44 | USCV_ITS ---
Lupe Mckinney Age: 77 Gender: F : 1945 Exam Date: 01/18/2023 14:34 Ordering Phys: Jean Peña MD Technologist: Francois Mcgee [place] [facility] [place] Indication: swelling PROCEDURES: The venous duplex Doppler examination of both lower extremities was performed in the standard fashion. The following venous structures were evaluated: common femoral vein, profunda vein, proximal portion of the greater saphenous vein, superficial femoral vein, and the popliteal vein. In addition, the posterior tibial and peroneal trunk were evaluated. FINDINGS: Normal 2-D Doppler and augmentation and compressibility throughout the lower extremity venous structures. Additional imaging through the proximal calf veins also reveals no thrombus. Limited evaluation of the greater saphenous vein is patent with no thrombus. CONCLUSIONS No DVT bilateral lower extremities. Dr. Alva Baker DO (Electronically Signed) Final Date: 18 January 2023 15:27 S
== END 2023-01-18 14:59 | disposition home or self-care (01) ==
LOC: ER 14:00 → MEDSURG 15:08
PROVIDERS: Admitting Provider Internal Medicine; Emergency Provider Emergency Medicine; PCP Family Medicine Adult Medicine; Visit Provider Internal Medicine
DX: I12.9 Hypertensive chronic kidney disease with stage 1 through stage 4 chronic kidney disease, or unspecified chronic kidney disease (principal); N18.30 Chronic kidney disease, stage 3 unspecified; E78.5 Hyperlipidemia, unspecified; R07.9 Chest pain, unspecified; K21.9 Gastro-esophageal reflux disease without esophagitis; R00.1 Bradycardia, unspecified; F41.9 Anxiety disorder, unspecified; I08.1 Rheumatic disorders of both mitral and tricuspid valves
CPT/HCPCS: 36415; 71045; 71275; 78452; 80048; 80053; 80061; 83036; 83690; 83735; 83880; 84443; 84484; 85025; 85378; 93005; 93017; 93306; 93970; 96372; 96374; 96375; 99285; A9500; G0378; J1650; J2270; J2785; Q9967

== ENCOUNTER → 2023-05-17 09:14 | Outpatient (BNVA) | payer MEDICARE, SELFPAY | PROVIDERS: PCP Family Medicine Adult Medicine; Referring Provider Family Medicine; Visit Provider Internal Medicine | DX: R55 Syncope and collapse (principal); R00.1 Bradycardia, unspecified; I49.1 Atrial premature depolarization; I49.3 Ventricular premature depolarization; I47.10 Supraventricular tachycardia, unspecified | CPT/HCPCS: 93225 ==

== ENCOUNTER 2023-07-07 10:08 | Emergency (ER) | payer MEDICARE, SELFPAY ==
[2023-07-07 10:09] VITALS: BP 107/59; BP 112/82; BP 79/52
--- NOTE | 2023-07-07 10:09 | XR_ITS ---
WS: [id number] Exam: XR chest 1V portable [id number] Date/Time of Exam: 07/07/2023 10:09 AM Reason For Exam: dizzy Comparison 01/17/2023. Findings: The lungs are clear and fully expanded. Costophrenic angles are sharp. No infiltrates. Bronchovascula r relief appears normal. Cardiac silhouette is unremarkable. Bony elements are intact. IMPRESSION: Unremarkable chest radiograph.
--- NOTE | 2023-07-07 10:09 | ECG_ITS ---
[facility] Test Date: 2023-07-07 Pat Name: Lupe Mckinney Department: Room: Gender: Female Cell Tuber Machine: : 1945 Requested By: Faustino Baldwin Order Number: [id number] Kenia MD: Jeanne Gonzalez M.D. Measurements Intervals [place] Rate: 63 P: 35 WV: 167 QRS: 7 QRSD: 88 T: 18 QT: 406 QTc: 417 Interpretive Statements SINUS RHYTHM Compared to ECG 01/17/2023 13:30:09 Sinus bradycardia no longer present Electronically Signed On 07-07-2023 21:47:19 SOLDERING TECHNICIAN by Jeanne Gonzalez M.D. [id number]
[2023-07-07 10:25] VITALS: BP 96/58; PULSE 67; RESP 16; TEMP 36.6; O2SAT 98; BMI 26.6
[2023-07-07 10:45] LABS: Basophils % 0.4 %; Eosinophils # 0.2 10^3/uL (0.0-0.8); Eosinophils % 2.2 %; Hematocrit 36.4 % (36-47); Lymphocytes # 1.5 10^3/uL (0.8-4.8); Mean Corpuscular HGB Conc 32.7 g/dL (30-55); Mean Corpuscular Hemoglobin 29.7 pg (27-33); Mean Corpuscular Volume 90.8 fl (85-98); Mean Platelet Volume 8.9 fL (7.4-10.4); Monocytes # 0.4 10^3/uL (0.2-0.9); Monocytes % 3.9 %; Neutrophils # 7.86 10^3/uL (1.8-7.7); Neutrophils % 78.2 %; Nucleated Red Blood Cells % 0 %; Platelet Count 217 10^3/cmm (157-399); Red Blood Count 4.01 10^6/uL (3.85-5.65); Red Cell Distribution Width 13.3 % (12.1-15.1); White Blood Count 10.05 10^3/uL (3.29-11.43)
[2023-07-07 11:03] LABS: Alanine Aminotransferase 11 U/L (0-33); Albumin Level 4.6 g/dL (3.5-5.2); Alkaline Phosphatase 73 U/L (35-105); Anion Gap 14.8 (5-19); Aspartate Amino Transferase 24 U/L (0-32); Blood Urea Nitrogen 22 mg/dL (8-23); Calcium 9.7 mg/dL (8.5-10.5); Carbon Dioxide 25 mmol/L (22-29); Chloride 94 mmol/L (98-107); Globulin 2.4 g/dL (1.3-4.6); Glucose 88 mg/dL (65-115); Osmolality Calculated 273 mOsm/kg (285-295); Potassium 3.8 mmol/L (3.5-5.1); Sodium 130 mmol/L (136-145); Total Bilirubin 1.4 mg/dL (0.15-1.2)
[2023-07-07 11:06] LABS: Troponin(5th) Baseline 21 ng/L (0-10)
--- NOTE | 2023-07-07 11:55 | CT_ITS ---
WS: [id number] CT HEAD TECHNIQUE: Noncontrast CT of the head obtained from the skullbase to the vertex. CLINICAL INFORMATION: syncope COMPARISON: None. DLP: 1011.[address] scans at [facility] use at least one of these dose optimization techniques: automated e xposure control; mA and/or kV adjustment per patient size (includes targeted exams where dose is matc hed to clinical indication); or iterative reconstruction. FINDINGS: No evidence of intracranial hemorrhage or mass effect. Ventricular system and basal cisterns are alvarado nt. Minimal small vessel changes with mild parenchymal volume loss. No extra-axial fluid collections. No evidence of mass or mass effect. Paranasal sinuses and mastoid air cells are well aerated. .Normal visualized soft tissues. IMPRESSION: 1. No evidence of intracranial hemorrhage or mass effect. 2. Minimal small vessel changes with mild parenchymal volume loss. 3. No acute intracranial findings.
[2023-07-07] MEDS: sodium chloride 0.9% 1,000 ML 999 ML IV (12:06)
--- NOTE | 2023-07-07 12:26 | ECG_ITS ---
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 Measurements Intervals [place] Rate: 53 P: 14 NM: 166 QRS: 11 QRSD: 105 T: 15 QT: 461 QTc: 435 Interpretive Statements SINUS BRADYCARDIA POSSIBLE LATERAL MYOCARDIAL INFARCTION , OF INDETERMINATE AGE [30 ms Q WAVE IN I/aVL/V5/V6] Compared to ECG 07/07/2023 11:31:32 Myocardial infarct finding now present Sinus rhythm no longer present Electronically Signed On 07-07-2023 21:52:38 ASSISTANT MANAGER PT by Jeanne Gonzalez M.D. [email or web address] [id number]
[2023-07-07 12:32] VITALS: BP 107/60; O2SAT 98
--- NOTE | 2023-07-07 12:35 | ED_ITS ---
HPI - Dizziness 2 General: Chief Complaint: Dizziness Stated Complaint: dizziness Time Seen by Provider: 07/07/23 11:51 Source: patient Mode of arrival: ambulatory Limitations: no limitations History of Present Illness: HPI Narrative: 77-year-old female states over the last few weeks she states she has been feeling extremely lightheaded upon standing and has had near syncopal events. She states that at rest she feels okay she denies any dizziness she denies any headache or chest pain. She is on blood pressure meds states she took her blood pressure medicine this morning states that when she had got up she felt like she was going to pass out. Did have nurse stand patient in her room here and her blood pressure did drop to the 70s. Associated symptoms: Denies chest pain, chills, headache(s), nausea or vomiting Review of Systems 2 Const: Denies: fever(s), chills, body aches or change in appetite ENMT: Denies: throat pain or dental pain Card: Reports: pre-syncope; Denies: chest pain Resp: Denies: dyspnea GI: Denies: abdominal pain, nausea, vomiting or diarrhea Musc: Denies: neck pain or back pain Skin/Breast: Denies: rash Neuro: Denies: headache(s) PFSH ED 2 PFSH: Medical History Elevated TSH Urticaria Decreased calculated GFR Chronic GERD Chronic idiopathic constipation Neck and shoulder pain Sacroiliac inflammation 04/29/2022 and 10/28/2022 Rt > left Alcohol use disorder, severe, in sustained remission, dependence Methamphetamine use disorder, severe, in sustained remission, dependence age 22 to 46, remission 30 years Post-traumatic stress disorder, chronic Dyslipidemia Hypertension Psychiatric care Social History Smoking and tobacco/nicotine status: never used tobacco/nicotine Second hand smoke exposure: Yes Alcohol intake: current Alcohol intake frequency: holidays/special occasions only Alcohol type: beer Substance/Drug Use: never Lives independently: Yes Household members: family Current occupational status: retired and disabled Physical Exam 2 Const: COMMON NORMALS: no acute distress, patient oriented x3 and healthy appearing HENMT: COMMON NORMALS: normocephalic and atraumatic HEAD & SCALP: n ormocephalic and atraumatic Eye: COMMON NORMALS: Equal, round and reactive pupils present and EOMs intact bilaterally PUPIL: Yes Equal, round and reactive pupils present Neck/C-Spine: COMMON NORMALS: full ROM and supple Chest: COMMONS NORMALS: normal inspection of the chest and normal palpation of entire chest wall Resp: COMMON NORMALS: normal respiratory effort, No retractions, No use of accessory muscles and clear to auscultation bilaterally AUSCULTATION: clear to auscultation bilaterally Cardio: COMMON NORMALS: regular rate, regular rhythm and No murmurs present (Cardio) RATE: regular rate RHYTHM: regular rhythm GI: COMMON NORMALS: Normal to inspection, nondistended, normoactive bowel sounds present, Soft to palpation, non-tender and no masses PALPATION: Yes Soft to palpation Extremity: COMMON NORMALS: normal to inspection and full ROM Neuro: COMMON NORMALS: patient oriented x3, moves all extremities and no focal motor deficits Psych: COMMON NORMALS: mental status grossly normal, Normal thought process present and cooperative THOUGHT PROCESS: Normal thought process present Skin: COMMON NORMALS: no rashes or lesions noted and no wounds GENERAL SKIN EXAM: no rashes or lesions noted Course 2 Vital Signs: Vital signs: Vital Signs Temperature 97.9 F 07/07/23 10:25 Pulse Rate 67 07/07/23 10:25 Respiratory Rate 16 07/07/23 10:25 Blood Pressure 115/53 07/07/23 13:29 Pulse Oximetry 98 07/07/23 12:32 Oxygen Delivery Me thod Room Air 07/07/23 12:32 MDM - Dizziness Medical Decision Making Patient presents here with nursing events likely from orthostatic hypotension her blood pressure here is improved after fluids will have her hold her blood pressure meds trend her blood pressure take it 3 times a day and follow-up with her PCP blood work here is all normal she is stable for discharge. Medical Records I reviewed the patient's medical records. Lab Data I reviewed the patient's lab results. 07/07/23 10:38 07/07/23 10:38 Laboratory Results WBC 10.05 10^3/uL (3.29-11.43) 07/07/23 10:38 RBC 4.01 10^6/uL (3.85-5.65) 07/07/23 10:38 Hgb 11.90 g/dL (11.27-16.99) 07/07/23 10:38 Hct 36.4 % (36-47) 07/07/23 10:38 MCV 90.8 fl (85-98) 07/07/23 10:38 MCH 29.7 pg (27-33) 07/07/23 10:38 MCHC 32.7 g/dL (30-55) 07/07/23 10:38 RDW 13.3 % (12.1-15.1) 07/07/23 10:38 Plt Count 217 10^3/cmm (157-399) 07/07/23 10:38 MPV 8.9 fL (7.4-10.4) 07/07/23 10:38 Neut % (Auto) 78.2 % 07/07/23 10:38 Lymph % (Auto) 15.0 % 07/07/23 10:38 [place] % (Auto) 3.9 % 07/07/23 10:38 Eos % (Auto) 2.2 % 07/07/23 10:38 Baso % (Auto) 0.4 % 07/07/23 10:38 Neut # (Auto) 7.86 10^3/uL (1.8-7.7) H 07/07/23 10:38 Lymph # (Auto) 1.5 10^3/uL (0.8-4.8) 07/07/23 10:38 [place] # (Auto) 0.4 10^3/uL (0.2-0.9) 07/07/23 10:38 Eos # (Auto) 0.2 10^3/uL (0.0-0.8) 07/07/23 10:38 Baso # (Auto) 0.0 10^3/uL (0.0-0.1) 07/07/23 10:38 Nucleated RBC % (auto) 0 % 07/07/23 10:38 Nucleated RBCs # 0.0 /100WBC 07/07/23 10:38 Sodium 130 mmol/L (136-145) L 07/07/23 10:38 Potassium 3.8 mmol/L (3.5-5.1) 07/07/23 10:38 Chloride 94 mmol/L (98-107) L 07/07/23 10:38 Carbon Dioxide 25 mmol/L (22-29) 07/07/23 10:38 Anion Gap 14.8 (5-19) 07/07/23 10:38 BUN 22 mg/dL (8-23) 07/07/23 10:38 Creatinine 1.4 mg/dL (0.5-0.9) H 07/07/23 10:38 GFR Calculation Not Reportable 07/07/23 10:38 Glucose 88 mg/dL (65-115) 07/07/23 10:38 Calculated Osmolality 273 mOsm/kg (285-295) L 07/07/23 10:38 Calcium 9.7 mg/dL (8.5-10.5) 07/07/23 10:38 Total Bilirubin 1.4 mg/dL (0.15-1.2) H 07/07/23 10:38 AST 24 U/L (0-32) 07/07/23 10:38 ALT 11 U/L (0-33) 07/07/23 10:38 Alkaline Phosphatase 73 U/L (35-105) 07/07/23 10:38 Troponin T Baseline 21 ng/L (0-10) H 07/07/23 10:38 Troponin T 120 Minute 16.41 ng/L (0-10) H 07/07/23 12:38 Delta Troponin T -4.59 ABS# (0-10) L 07/07/23 12:38 Total Protein 7.0 g/dL (6.6-8.7) 07/07/23 10:38 Albumin 4.6 g/dL (3.5-5.2) 07/07/23 10:38 Globulin 2.4 g/dL (1.3-4.6) 07/07/23 10:38 All radiology interpretation(s) finalized by discharge EKG Data EKG 1: I personally reviewed and interpreted this EKG as follows: EKG interpretation date: 07/07/23 EKG interpretation time: 11:31 Interpretation: nsr hr [address] or t wave abnormalities qrs 88 qtc 413 EKG 2: I personally reviewed and interpreted this EKG as follows: EKG interpretation date: 07/07/23 EKG interpretation time: 12:26 Interpretation: sinus abi hr [address] or t wave abnormalities qrs 105 qtc 444 Discharge Plan Discharge Patient Disposition: Home Clinical Impression: Orthostatic hypotension, Near syncope Condition: Stable Prescriptions: No Action atorvastatin 10 mg tablet 10 mg PO QAM losartan 50 mg tablet 50 mg PO QAM tramadol 50 mg tablet 50 mg PO Q12H PRN (Reason: Pain) trazodone 100 mg tablet 300 mg PO BEDTIME Vitamin D3 25 mcg (1,000 unit) Capsule 25 mcg PO QAM duloxetine 60 mg capsule,delayed release(DR/EC) 120 mg PO QAM nitroglycerin 0.4 mg tablet, sublingual 0.4 mg sublingual Q5M PRN (Reason: Chest Pain) Rx Instructions: do not exceed 3 doses per episode Linzess 145 mcg capsule 145 mcg PO DAILY PRN (Reason: Constipation) Discharge Orders: Discharge ED (Routine); Ordered 07/07/23 Ordered By: Faustino Baldwin Discharge Diet: Advance as tolerated Discharge Activity: Resume usual activity Patient Instructions: Syncope (ED), Hypotension (ED) Coding Level of Care Code ED Camera Repair Technician for Ravi Sharma
[2023-07-07 13:19] LABS: Troponin 5 2HR 16.41 ng/L (0-10)
[2023-07-07 13:21] LABS: Troponin 5 2HR Delta -4.59 ABS# (0-10)
[2023-07-07 13:29] VITALS: BP 110/60; BP 115/53; BP 117/61
[2023-07-07 13:47] VITALS: BP 136/61; O2SAT 98
== END 2023-07-07 13:48 | disposition home or self-care (01) ==
PROVIDERS: Family Medicine; Emergency Provider Emergency Medicine
DX: I95.1 Orthostatic hypotension (principal); Z77.22 Contact with and (suspected) exposure to environmental tobacco smoke (acute) (chronic); E78.5 Hyperlipidemia, unspecified; I10 Essential (primary) hypertension
CPT/HCPCS: 36415; 70450; 71045; 80053; 84484; 85025; 93005; 96360; 99285; J7030

== ENCOUNTER → 2023-12-30 12:45 | Outpatient (BNVA) | payer MEDICARE, SELFPAY | PROVIDERS: Visit Provider Nurse Practitioner Psychiatric/Mental Health | DX: F33.2 Major depressive disorder, recurrent severe without psychotic features (principal); Z79.899 Other long term (current) drug therapy; F43.12 Post-traumatic stress disorder, chronic; F41.1 Generalized anxiety disorder; F60.3 Borderline personality disorder; F15.21 Other stimulant dependence, in remission | CPT/HCPCS: 80053; 80061; 83036; 84443 ==

== ENCOUNTER 2024-03-21 13:42 | Emergency (ER) | payer MEDICARE, SELFPAY ==
--- NOTE | 2024-03-21 13:48 | ECG_ITS ---
[facility] Test Date: 2024-03-21 Pat Name: Lupe Mckinney Department: Room: Gender: Female Line Out Man: : 1945 Requested By: Stephany Bennett Order Number: [id number] Aquino MD: Edil Hollis M.D. Measurements Intervals [place] Rate: 65 P: 66 [place]: 188 QRS: 1 QRSD: 92 T: 25 QT: 389 QTc: 406 Interpretive Statements SINUS RHYTHM Compared to ECG 07/07/2023 12:26:28 Sinus bradycardia no longer present Myocardial infarct finding no longer present Electronically Signed On 03-21-2024 16:27:01 CDT by Edil Hollis M.D. [id number]
[2024-03-21 13:50] VITALS: BP 126/77; PULSE 76; RESP 18; TEMP 36.4; O2SAT 99; BMI 25.8
--- NOTE | 2024-03-21 13:54 | ED_ITS ---
HPI - Dizziness 2 General: Chief Complaint: Dizziness Stated Complaint: Dizzy, Hypotensive Time Seen by Provider: 03/21/24 13:43 History of Present Illness: HPI Narrative: 78-year-old female with a history of hyp erlipidemia who presents the emergency room [place] She arrives by ambulance. She says she was feeling fine. She says she has had diarrhea for about 3 weeks. But no belly pain. She was not have any fevers. She had actually missed her doctor's appointment this morning and decided to go to the store since she had missed it. EMS reports she was diaphoretic and blood pressure was in the 90s when they arrived. She said she was just standing when it started. She has had no fevers. No altered mental status. No focal motor deficits. She said she just became very very lightheaded. Related Data Home Medications Medication Instructions Recorded Confirmed atorvastatin 10 mg tablet 10 mg PO QAM cholesterol 01/17/23 02/03/24 nitroglycerin 0.4 mg sublingual 0.4 mg sublingual Q5M PRN Chest 07/07/23 02/03/24 tablet Pain tramadol 50 mg tablet 50 mg PO Q12H PRN Pain 07/07/23 02/03/24 Previous Rx's Medication Instructions Recorded olanzapine 5 mg tablet 5 mg PO BEDTIME #30 tabs 12/30/23 donepezil 5 mg tablet 5 mg PO .5 pm #30 tabs 02/03/24 propranolol 10 mg tablet 10 mg PO BEDTIME #30 tabs 02/03/24 Allergies Allergy/AdvReac Type Severity Reaction Status Date / Time Sulfa (Sulfonamide Allergy Severe Anaphylaxis Verified 02/03/24 13:51 Antibiotics) codeine Allergy ALGY-Swell Verified 02/03/24 13:51 Lip/Tongue/Throat diphenhydramine AdvReac Mild ADR-Nausea Verified 02/03/24 13:51 [From Benadryl] pineapple AdvReac Mild Unknown Verified 02/03/24 13:51 Review of Systems 2 Narrative: Constitutional symptoms: Negative except as documented in HPI. Skin symptoms: Negative except as documented in HPI. Eye symptoms: Negative except as documented in HPI. ENMT symptoms: Negative except as documented in HPI. Respiratory symptoms: Negative except as documented in HPI. Cardiovascular symptoms: Negative except as documented in HPI. Gastrointestinal symptoms: Negative except as documented in HPI. Genitourinary symptoms: Negative except as documented in HPI. Musculoskeletal symptoms: Negative except as documented in HPI. Neurologic symptoms: Negative except as documented in HPI. Psychiatric symptoms: Negative except as documented in HPI. Endocrine symptoms: Negative except as documented in HPI. PFSH ED 2 PFSH: Medical History (Updated 03/21/24 @ 16:38 by Stephany Esquivel MD) Generalized anxiety disorder Major depressive disorder, recurrent severe without psychotic features Borderline personality disorder Dementia in other diseases classified elsewhere, moderate, with mood disturbance Drug induced akathisia Methamphetamine use disorder, severe, in sustained remission, dependence use from age 22 to 46 Elevated TSH Urticaria Decreased calculated GFR Chronic GERD Chronic idiopathic constipation Neck and shoulder pain Sacroiliac inflammation 04/29/2022 and 10/28/2022 Rt > left Alcohol use disorder, severe, in sustained remission, dependence Post-traumatic stress disorder, chronic Dyslipidemia Hypertension Psychiatric care Social History Smoking and tobacco/nicotine status: never used tobacco/nicotine Second hand smoke exposure: Yes Alcohol intake: current Alcohol intake frequency: holidays/special occasions only Alcohol type: beer Substance/Drug Use: never Lives independently: Yes Household members: family Current occupational status: retired and disabled Physical Exam 2 Narrative: EXAM NARRATIVE: General: Alert, no acute distress. Skin: Warm, dry. Head: Normocephalic, atraumatic. Neck: Supple, trachea midline. Eye: Extraocular movements are intact. Ears, nose, mouth and throat: mucosa moist. Cardiovascular: Regular, Normal peripheral perfusion. Respiratory: Lungs are clear to auscultation, respirations are non-labored, breath sounds are equal, Symmetrical chest wall expansion. Gastrointestinal: Soft, Nontender, Non distended Musculoskeletal: Normal ROM, no deformity. Neurological: Alert and oriented, No focal neurological deficit observed. Psychiatric: Cooperative, appropriate mood & affect. Course 2 Vital Signs: Vital signs: Vital Signs Temperature 97.5 F L 03/21/24 13:57 Pulse Rate 68 03/21/24 14:37 Respiratory Rate 18 03/21/24 14:37 Blood Pressure 143/90 03/21/24 14:37 Pulse Oximetry 95 03/21/24 14:37 Oxygen Delivery Me thod Room Air 03/21/24 14:37 MDM - Dizziness Medical Decision Making Medical decision making: Differential diagnosis including but not limited to and based on the above HPI, review of systems and physical exam in this patient with near syncope: Vasovagal, orthostatics hypotension, cardiac dysrhythmia, myocardial infarction, infection and hypotension, Orders placed to evaluate differential diagnosis based on the above differential, HPI and physical exam Lab Review: Laboratory results were reviewed and interpreted by myself the emergency room physician. No leukocytosis. No anemia. BUN and creatinine are slightly elevated at 21.4. She appears dehydrated on exam. Urine shows no signs of infection. I reviewed the patient's medical record. Reexamination: Patient says she feels much better. No increased work of breathing. No altered mental status. No focal motor deficits. No tachycardia. Blood pressure has normalized. Assessment and plan: Near syncope Dehydration ?2 L normal saline bolus in the emergency room. - Discharged home - Discussed plan with patient. Answered any questions. - Evaluation and treatment of this problem were appropriate in the emergency setting. Lab Data 03/21/24 13:58 03/21/24 13:58 Laboratory Results WBC 5.30 10^3/uL (3.29-11.43) 03/21/24 13:58 RBC 4.14 10^6/uL (3.85-5.65) 03/21/24 13:58 Hgb 12.20 g/dL (11.27-16.99) 03/21/24 13:58 Hct 36.8 % (36-47) 03/21/24 13:58 MCV 88.9 fl (85-98) 03/21/24 13:58 MCH 29.5 pg (27-33) 03/21/24 13:58 MCHC 33.2 g/dL (30-55) 03/21/24 13:58 RDW 13.8 % (12.1-15.1) 03/21/24 13:58 Plt Count 208 10^3/cmm (157-399) 03/21/24 13:58 MPV 9.5 fL (7.4-10.4) 03/21/24 13:58 Neut % (Auto) 55.8 % 03/21/24 13:58 Lymph % (Auto) 34.9 % 03/21/24 13:58 [place] % (Auto) 5.5 % 03/21/24 13:58 Eos % (Auto) 2.3 % 03/21/24 13:58 Baso % (Auto) 1.1 % 03/21/24 13:58 Neut # (Auto) 2.96 10^3/uL (1.8-7.7) 03/21/24 13:58 Lymph # (Auto) 1.9 10^3/uL (0.8-4.8) 03/21/24 13:58 [place] # (Auto) 0.3 10^3/uL (0.2-0.9) 03/21/24 13:58 Eos # (Auto) 0.1 10^3/uL (0.0-0.8) 03/21/24 13:58 Baso # (Auto) 0.1 10^3/uL (0.0-0.1) 03/21/24 13:58 Nucleated RBC % (auto) 0 % 03/21/24 13:58 Nucleated RBCs # 0.0 /100WBC 03/21/24 13:58 Sodium 140 mmol/L (136-145) 03/21/24 13:58 Potassium 3.7 mmol/L (3.5-5.1) 03/21/24 13:58 Chloride 104 mmol/L (98-107) 03/21/24 13:58 Carbon Dioxide 20 mmol/L (22-29) L 03/21/24 13:58 Anion Gap 19.7 (5-19) H 03/21/24 13:58 BUN 20 mg/dL (8-23) 03/21/24 13:58 Creatinine 1.4 mg/dL (0.5-0.9) H 03/21/24 13:58 GFR Calculation Not Reportable 03/21/24 13:58 Glucose 132 mg/dL (65-115) H 03/21/24 13:58 Calculated Osmolality 294 mOsm/kg (285-295) 03/21/24 13:58 Lactic Acid 2.9 mmol/L (0.5-2.2) H 03/21/24 13:58 Calcium 9.6 mg/dL (8.5-10.5) 03/21/24 13:58 Total Bilirubin 1.2 mg/dL (0.15-1.2) 03/21/24 13:58 AST 15 U/L (0-32) 03/21/24 13:58 ALT 7 U/L (0-33) 03/21/24 13:58 Alkaline Phosphatase 92 U/L (35-105) 03/21/24 13:58 Troponin T Baseline 11 ng/L (0-10) H 03/21/24 13:58 Troponin T 120 Minute 10.13 ng/L (0-10) H 03/21/24 15:37 Delta Troponin T -0.87 ABS# (0-10) L 03/21/24 15:37 C-Reactive Protein 3.0 mg/L (0.0-4.9) 03/21/24 13:58 Total Protein 6.5 g/dL (6.6-8.7) L 03/21/24 13:58 Albumin 4.3 g/dL (3.5-5.2) 03/21/24 13:58 Globulin 2.2 g/dL (1.3-4.6) 03/21/24 13:58 Urine Color Yellow (Yellow) 03/21/24 15:20 Urine Appearance Clear (CLEAR) 03/21/24 15:20 Urine pH 5.5 (5-7) 03/21/24 15:20 Ur Specific [place] 1.009 (1.005-1.030) 03/21/24 15:20 Urine Protein Negative (Negative) 03/21/24 15:20 Urine Glucose (UA) Negative (Normal) 03/21/24 15:20 Urine Ketones Negative (Negative) 03/21/24 15:20 Urine Blood Negative (Negative) 03/21/24 15:20 Urine Nitrate Negative (Negative) 03/21/24 15:20 Urine Bilirubin Negative (Negative) 03/21/24 15:20 Urine Urobilinogen 0.2 mg/dL (Negative) 03/21/24 15:20 Ur Leukocyte Esterase Negative (Negative) 03/21/24 15:20 Urine RBC 0-2 /hpf (0-2) 03/21/24 15:20 Urine WBC 0-5 /hpf (0-5) 03/21/24 15:20 Ur Squamous Epith Cells 0-5 /hpf (0-5) 03/21/24 15:20 Amorphous Sediment Not Reportable 03/21/24 15:20 Urine Bacteria None seen /hpf (NONE) 03/21/24 15:20 Hyaline Casts 1.65 /lpf 03/21/24 15:20 No radiology studies performed this visit Discharge Plan Discharge Patient Disposition: Home Clinical Impression: Near syncope, Dehydration Condition: Stable Prescriptions: No Action olanzapine 5 mg tablet 5 mg PO BEDTIME Qty: 30 2RF Rx Instructions: Take one tablet at bedtime propranolol 10 mg tablet 10 mg PO BEDTIME Qty: 30 3RF Rx Instructions: Take one tablet at bedtime donepezil 5 mg tablet 5 mg PO .5 pm Qty: 30 3RF Rx Instructions: Take one tablet at 5 pm atorvastatin 10 mg tablet 10 mg PO QAM tramadol 50 mg tablet 50 mg PO Q12H PRN (Reason: Pain) nitroglycerin 0.4 mg tablet, sublingual 0.4 mg sublingual Q5M PRN (Reason: Chest Pain) Rx Instructions: do not exceed 3 doses per episode Discharge Orders: Discharge ED (Routine); Ordered 03/21/24 Ordered By: Stephany Esquivel Discharge Diet: Usual diet Discharge Activity: Increase activity as tolerated Patient Instructions: Near Syncope (ED) Activity Restrictions/Additional Instructions: Thank you for choosing [facility] for your healthcare needs today. Please realize this is an emergency room and that we are providing you with a medical screening exam and this may not be complete and all inclusive of all the testing and or work up that you may need to determine your ailment or severity of your illness. You have been screened and evaluated and felt safe for discharge. Health conditions do change or evolve sometimes and as such it is important that you follow up with your Primary Doctor to be re checked, 3-5 days is a general good time frame for follow up. You are always welcome to return to the ED for re assessment if your symptoms are worsening or you have new concerns Coding Level of Care Code ED Client Resource Specialist for Ravi Sharma
[2024-03-21 13:57] VITALS: BP 126/77; PULSE 76; RESP 18; TEMP 36.4; O2SAT 99
[2024-03-21 14:06] LABS: Basophils # 0.1 10^3/uL (0.0-0.1); Basophils % 1.1 %; Eosinophils # 0.1 10^3/uL (0.0-0.8); Eosinophils % 2.3 %; Hematocrit 36.8 % (36-47); Lymphocytes # 1.9 10^3/uL (0.8-4.8); Lymphocytes % 34.9 %; Mean Corpuscular HGB Conc 33.2 g/dL (30-55); Mean Corpuscular Hemoglobin 29.5 pg (27-33); Mean Corpuscular Volume 88.9 fl (85-98); Mean Platelet Volume 9.5 fL (7.4-10.4); Monocytes # 0.3 10^3/uL (0.2-0.9); Monocytes % 5.5 %; Neutrophils # 2.96 10^3/uL (1.8-7.7); Neutrophils % 55.8 %; Nucleated Red Blood Cells % 0 %; Platelet Count 208 10^3/cmm (157-399); Red Blood Count 4.14 10^6/uL (3.85-5.65); Red Cell Distribution Width 13.8 % (12.1-15.1)
[2024-03-21 14:29] LABS: Troponin(5th) Baseline 11 ng/L (0-10)
[2024-03-21 14:34] LABS: Alanine Aminotransferase 7 U/L (0-33); Albumin Level 4.3 g/dL (3.5-5.2); Alkaline Phosphatase 92 U/L (35-105); Anion Gap 19.7 (5-19); Aspartate Amino Transferase 15 U/L (0-32); Blood Urea Nitrogen 20 mg/dL (8-23); Calcium 9.6 mg/dL (8.5-10.5); Carbon Dioxide 20 mmol/L (22-29); Chloride 104 mmol/L (98-107); Creatinine Clr Calc Pharmacy 39.1844; Globulin 2.2 g/dL (1.3-4.6); Glucose 132 mg/dL (65-115); Osmolality Calculated 294 mOsm/kg (285-295); Potassium 3.7 mmol/L (3.5-5.1); Sodium 140 mmol/L (136-145); Total Bilirubin 1.2 mg/dL (0.15-1.2); Total Protein 6.5 g/dL (6.6-8.7)
[2024-03-21 14:35] LABS: Lactic Sepsis W/Reflex 2.9 mmol/L (0.5-2.2)
[2024-03-21 14:37] VITALS: BP 143/90; PULSE 68; RESP 18; O2SAT 95
[2024-03-21] MEDS: sodium chloride 0.9% 1,000 ML 999 ML IV ×2 (14:41→16:10)
[2024-03-21 15:33] LABS: Bilirubin Urine Negative (Negative); Blood Urine Negative (Negative); Glucose Urine UA Negative (Normal); Ketones Urine Negative (Negative); Leukocyte Esterase Urine Negative (Negative); Nitrate Urine Negative (Negative); Protein Urine Negative (Negative); Specific Gravity, Urine 1.009 (1.005-1.030); Urine Appearance Clear (CLEAR); Urine Color Yellow (Yellow); Urobilinogen Urine 0.2 mg/dL (Negative); pH Urine 5.5 (5-7)
[2024-03-21 15:38] LABS: Bacteria Urine None Seen /hpf; Hyaline Casts Urine 1.65 /lpf; RBC Urine 0-2 /hpf (0-2); Squamous Epithelial Cell Urine 0-5 /hpf (0-5); WBC Urine 0-5 /hpf (0-5)
[2024-03-21 15:50] LABS: Reflex Lactate Order REFLEX LACTIC ORDERD
--- NOTE | 2024-03-21 15:56 | ECG_ITS ---
[facility] Test Date: 2024-03-21 Pat Name: Lupe Mckinney Department: Room: Gender: Female Operating Room Technician: : 1945 Requested By: Stephany Bennett Order Number: [id number] Kenia MD: Edil Hollis M.D. Measurements Intervals [place] Rate: 52 P: 21 [place]: 194 QRS: -3 QRSD: 94 T: 11 QT: 431 QTc: 401 Interpretive Statements SINUS BRADYCARDIA Compared to ECG 03/21/2024 14:32:25 Sinus rhythm no longer present Electronically Signed On 03-21-2024 16:28:05 CDT by Edil Hollis M.D. [email or web address] [email or web address]/OM/[id number]
[2024-03-21 16:14] LABS: Troponin 5 2HR 10.13 ng/L (0-10)
[2024-03-21 16:16] LABS: Troponin 5 2HR Delta -0.87 ABS# (0-10)
== END 2024-03-21 16:48 | disposition home or self-care (01) ==
PROVIDERS: Emergency Provider Emergency Medicine
DX: R55 Syncope and collapse (principal); E86.0 Dehydration; F03.90 Unspecified dementia, unspecified severity, without behavioral disturbance, psychotic disturbance, mood disturbance, and anxiety; E78.5 Hyperlipidemia, unspecified; I10 Essential (primary) hypertension; Z87.891 Personal history of nicotine dependence
CPT/HCPCS: 36415; 80053; 81001; 83605; 84484; 85025; 86140; 93005; 96360; 99284; J7030

== ENCOUNTER 2024-04-06 11:25 | Outpatient (CLI) | payer MEDICARE, SELFPAY ==
--- NOTE | 2024-04-06 11:32 | MM_ITS ---
WS: [id number] BILATERAL 3D TOMOSYNTHESIS DIGITAL DIAGNOSTIC MAMMOGRAPHY WITH CAD CLINICAL INFORMATION: RIGHT breast severe pain HISTORY: Screening mammogram. Breast pain COMPARISON: 2021 TECHNIQUE: Bilateral CC and MLO views. FINDINGS: Scattered fibroglandular densities bilaterally. No suspicious focal mass, asymmetry, calcifications, or architectural distortion. Vascular calcification. Ultrasound is pending of the area of concern. ULTRASOUND BREAST RIGHT TECHNIQUE: Ultrasound right breast focused area of concern. CLINICAL INFORMATION: RIGHT breast severe pain FINDINGS: Ultrasound RIGHT breast 10-2 o'clock position area of pain. Normal underlying subcutaneous soft tissu es. No cystic or solid lesions. No suspicious lesions of target for biopsy. MM/[place] [id number] IMPRESSION: DENSITY: There are scattered areas of fibroglandular density. BI-RADS: 2 - Benign. FOLLOW UP: 1 Year Follow-up Recommend return to annual screening mammography.
--- NOTE | 2024-04-06 12:19 | US_ITS ---
WS: [id number] BILATERAL 3D TOMOSYNTHESIS DIGITAL DIAGNOSTIC MAMMOGRAPHY WITH CAD CLINICAL INFORMATION: RIGHT breast severe pain HISTORY: Screening mammogram. Breast pain COMPARISON: 2021 TECHNIQUE: Bilateral CC and MLO views. FINDINGS: Scattered fibroglandular densities bilaterally. No suspicious focal mass, asymmetry, calcifications, or architectural distortion. Vascular calcification. Ultrasound is pending of the area of concern. ULTRASOUND BREAST RIGHT TECHNIQUE: Ultrasound right breast focused area of concern. CLINICAL INFORMATION: RIGHT breast severe pain FINDINGS: Ultrasound RIGHT breast 10-2 o'clock position area of pain. Normal underlying subcutaneous soft tissu es. No cystic or solid lesions. No suspicious lesions of target for biopsy. US/US breast RT limited* [id number] IMPRESSION: DENSITY: There are scattered areas of fibroglandular density. BI-RADS: 2 - Benign. FOLLOW UP: 1 Year Follow-up Recommend return to annual screening mammography.
== END 2024-04-06 11:26 | disposition home or self-care (01) ==
LOC: RAD 11:26
PROVIDERS: PCP Family Medicine; Visit Provider Family Medicine
DX: Z12.31 Encounter for screening mammogram for malignant neoplasm of breast (principal); R92.323 Mammographic fibroglandular density, bilateral breasts; R92.1 Mammographic calcification found on diagnostic imaging of breast
CPT/HCPCS: 76642; 77062; G0279